=== PATIENT | female | born 1940 | race Two or more races ===

== ENCOUNTER 2018-03-17 07:48 | Outpatient (CLI) | payer OTHER ==
[~2018-03-17 07:48] MED LIST: CLONAZEPAM0.5 MG; MELATONIN10 MG
== END 2018-03-17 07:52 | disposition home or self-care (01) ==
LOC: NUCLEAR 07:48
DX: I82.622 Acute embolism and thrombosis of deep veins of left upper extremity (principal)

== ENCOUNTER 2018-10-17 13:06 | Outpatient (CLI) | payer OTHER | END 2018-10-17 15:43 | disposition home or self-care (01) | LOC: RAD 13:06 | DX: Z12.31 Encounter for screening mammogram for malignant neoplasm of breast (principal); Z87.898 Personal history of other specified conditions; N64.89 Other specified disorders of breast; M25.562 Pain in left knee; M25.561 Pain in right knee; M79.605 Pain in left leg; M79.604 Pain in right leg; J20.8 Acute bronchitis due to other specified organisms; J32.8 Other chronic sinusitis; J98.11 Atelectasis; J45.40 Moderate persistent asthma, uncomplicated ==

== ENCOUNTER 2020-04-07 10:11 | Outpatient (CLI) | payer OTHER | END 2020-04-09 06:31 | disposition home or self-care (01) | LOC: RAD 10:11 | DX: M25.561 Pain in right knee (principal); M25.562 Pain in left knee ==

== ENCOUNTER 2020-04-11 05:38 | Emergency (ER) | payer OTHER ==
[~2020-04-11] VITALS: Ht 152.4 cm; Wt 73.5 kg
[2020-04-11] MEDS ORDERED: SYNTHROID50 MCG PO (05:50)
== END 2020-04-11 13:04 | disposition home or self-care (01) ==
LOC: ER 05:38
DX: N20.1 Calculus of ureter (principal); R10.31 Right lower quadrant pain

== ENCOUNTER 2020-05-19 15:08 | Outpatient (CLI) | payer OTHER ==
[~2020-05-19 15:08] MED LIST changes: +SYNTHROID50 MCG PO
== END 2020-05-19 15:12 | disposition home or self-care (01) ==
LOC: MAMO-SONO 15:08
PROVIDERS: ATTEND Internal Medicine Cardiovascular Disease
DX: M25.562 Pain in left knee (principal); Z12.31 Encounter for screening mammogram for malignant neoplasm of breast; C50.811 Malignant neoplasm of overlapping sites of right female breast; E04.2 Nontoxic multinodular goiter

== ENCOUNTER 2020-07-08 10:53 | Outpatient (CLI) | payer OTHER | END 2020-07-08 11:07 | disposition home or self-care (01) | LOC: LAB 10:53 | PROVIDERS: ATTEND Internal Medicine Cardiovascular Disease | DX: E03.8 Other specified hypothyroidism (principal); E11.9 Type 2 diabetes mellitus without complications; E78.1 Pure hyperglyceridemia; E78.00 Pure hypercholesterolemia, unspecified ==

== ENCOUNTER 2021-06-22 11:19 | Outpatient (CLI) | payer OTHER | END 2021-06-22 11:34 | disposition home or self-care (01) | LOC: TOM 11:19 | PROVIDERS: ATTEND Internal Medicine Cardiovascular Disease | DX: K57.90 Diverticulosis of intestine, part unspecified, without perforation or abscess without bleeding (principal); I70.8 Atherosclerosis of other arteries; R10.84 Generalized abdominal pain; M25.562 Pain in left knee ==